=== PATIENT | female | born 1985 | race Native Hawaiian/Other Pacific Islander ===

== ENCOUNTER 2017-10-14 13:34 | Inpatient (IN) | payer BC, OTHER ==
--- NOTE | 2017-10-14 14:14 | ED PDOC ---
HPI: Psych/Substance Abuse Time Seen by Provider: 10/14/17 14:05 Chief Complaint (Nursing): Psychiatric Evaluation Chief Complaint (Provider): Suicidal Ideation History Per: Patient History/Exam Limitations: no limitations Onset/Duration Of Symptoms: Days Current Symptoms Are (Timing): Still Present Suicide/Self Injury Attempted (Context): None Modifying Factor(s): None Associated Symptoms: Depression, Suicidal Thoughts, Suicidal Plan Additional Complaint(s): 32 year old female with a history of asthma and depression presents to the emergency department for a psychiatric evaluation. Patient reports that she has had depression ongoing for a few months and her suicidal ideations have also increased. She states that this week she began formulating a plan and she became worried prompting her ED visit. Patient states that she has an appointment with her psychiatrist in 2 weeks. Patient has had no previous suicidal attempts and stats that she is unsure of what made everything worse. PMD: Past Medical History Reviewed: Historical Data, Nursing Documentation, Vital Signs Vital Signs: Last Vital Signs Temp 98.2 F 10/14/17 13:40 Pulse 78 10/14/17 13:40 Resp 18 10/14/17 13:40 BP 135/78 10/14/17 13:40 Pulse Ox 98 10/14/17 13:40 - Medical History PMH: No Chronic Diseases - Surgical History Surgical History: No Surg Hx - Family History Family History: States: Unknown Family Hx - Living Arrangements Living Arrangements: With Family - Social History Current smoker - smoking cessation education provided: No Alcohol: None Drugs: Other - Home Medications Home Medications: Ambulatory Orders Medication Instructions Recorded Loratadine/Pseudoephedrine 1 tab PO DAILY 10/14/17 [Claritin-D 24 Hour Tablet] Noreth-Ethinyl Estradiol/Iron 1 tab PO DAILY 10/14/17 [Generess Fe Chewable Tablet] - Allergies Allergies/Adverse Reactions: Allergies Allergy/AdvReac Type Severity Reaction Status Date / Time No Known Allergies Allergy Verified 10/14/17 13:40 Review of Systems Psych: Positive for: Depression, Suicidal ideation Physical Exam - Reviewed Nursing Documentation Reviewed: Yes Vital Signs Reviewed: Yes - Physical Exam Appears: Positive for: Non-toxic, No Acute Distress Head Exam: Positive for: ATRAUMATIC, NORMAL INSPECTION Skin: Positive for: Normal Color, Warm, Dry. Negative for: Rash Eye Exam: Positive for: Normal appearance, EOMI, PERRL ENT: Positive for: Normal ENT Inspection. Negative for: Nasal Congestion, Tonsillar Exudate, Tonsillar Swelling Neck: Positive for: Normal, Painless ROM, Supple Cardiovascular/Chest: Positive for: Regular Rate, Rhythm, Chest Non Tender. Negative for: Murmur, Tachycardia Respiratory: Positive for: Normal Breath Sounds. Negative for: Rales, Rhonchi, Wheezing, Respiratory Distress Gastrointestinal/Abdominal: Positive for: Normal Exam, Bowel Sounds, Soft. Negative for: Tenderness, Mass, Guarding, Rebound Back: Positive for: Normal Inspection. Negative for: L CVA Tenderness, R CVA Tenderness, Vertebral Tenderness Extremity: Positive for: Normal ROM. Negative for: Tenderness, Calf Tenderness , Deformity, Swelling Neurologic/Psych: Positive for: Alert, Oriented, Mood/Affect (tearful), Gait. Negative for: Motor/Sensory Deficits - Laboratory Results Result Diagrams: 10/14/17 15:58 10/14/17 15:58 - ECG O2 Sat by Pulse Oximetry: 98 (RA) Pulse Ox Interpretation: Normal - Progress ED Course And Treament: Patient is medically cleared for psychiatric admission. Medical Decision Making Medical Decision Makin Initial Impression 32 year old female presenting with suicidal ideation Initial plan: * Reevaluation 1452 Patient will be admitted to Dr. Schwartz. Diagnosis - Depression ------- Documented by Serene benton acting as a scribe for Bre Rocha PA-C. All medical record entries made by the Scribe were at my direction and personally dictated by me. I have reviewed the chart and agree that the record accurately reflects my personal performance of the history, physical exam, medical decision making, and the department course for this patient. I have also personally directed, reviewed, and agree with the discharge instructions and disposition. Disposition - Clinical Impression Clinical Impression: Depression - Patient ED Disposition Is Patient to be Admitted: Yes - Disposition Disposition Time: 14:46 Condition: FAIR - Pt Status Changed To: Hospital Disposition Of: Inpatient - Admit Certification Admit to Inpatient:: After my assessment, the patient will require hospitalization for at least two midnights. This is because of the severity of symptoms shown, intensity of services needed, and/or the medical risk in this patient being treated as an outpatient.
[2017-10-14 15:57] LABS: SQUAMOUS EPITHIAL 1 /hpf (0-5); URINE BACTERIA RARE (<OCC); URINE BILIRUBIN NEGATIVE (NEGATIVE); URINE BLOOD NEGATIVE (NEGATIVE); URINE CLARITY CLEAR (Clear); URINE COLOR YELLOW (YELLOW); URINE GLUCOSE (UA) NEG (Normal); URINE LEUKOCYTE ESTERASE NEG Leu/uL (Negative); URINE PROTEIN NEGATIVE (NEGATIVE); URINE UROBILINOGEN 0.2-1.0 mg/dL (0.2-1.0)
[2017-10-14 16:02] LABS: BASO # 0.1 K/uL (0.0-0.2); BASO % 0.8 % (0.0-2.0); EOS # 0.4 K/uL (0.0-0.7); EOS % 5.1 % (0.0-4.0); HEMOGLOBIN 14.3 g/dL (12.0-16.0); LYMPH # 3.1 K/uL (1.0-4.3); LYMPH % 43.9 % (20.0-40.0); MEAN CELL VOLUME 93.7 fl (81.0-99.0); MEAN CORPUSCULAR HEMOGLOBIN 31.8 pg (27.0-31.0); MEAN CORPUSCULAR HGB CONC 33.9 g/dL (33.0-37.0); MEAN PLATELET VOLUME 8.1 fl (7.2-11.7); MONO # 0.3 K/uL (0.0-0.8); NEUT # 3.3 K/uL (1.8-7.0); NEUT % 46.2 % (50.0-75.0); NRBC % 0.1 % (0.0-0.0); RBC 4.51 Mil/uL (3.80-5.20); RED CELL DISTRIBUTION WIDTH 12.4 % (11.5-14.5); WHITE BLOOD COUNT 7.1 K/uL (4.8-10.8)
[2017-10-14 16:07] LABS: BARBITURATES, UR NEGATIVE (NEGATIVE); BENZODIAZEPINES, UR NEGATIVE (NEGATIVE); OPIATES, UR NEGATIVE (NEGATIVE); PHENCYCLIDINE, UR NEGATIVE (NEGATIVE)
[2017-10-14 16:14] LABS: ALB/GLOB RATIO 1.1 (1.0-2.1); ALBUMIN 4.3 g/dL (3.5-5.0); ALT/SGPT 16 U/L (9-52); AST/SGOT 26 U/L (14-36); BLOOD UREA NITROGEN 11 mg/dl (7-17); CALCIUM 8.7 mg/dL (8.4-10.2); GFR AFRICAN-AMERICAN > 60; GFR NON-AFRICAN AMERICAN > 60
--- NOTE | 2017-10-15 00:01 | ED PDOC ---
- Laboratory Results Result Diagrams: 10/14/17 15:58 10/14/17 15:58 - ECG O2 Sat by Pulse Oximetry: 100 Medical Decision Making Medical Decision Makin Patient under the direct care of this provider from Bre Rocha PA-C pending morning evaluation by Dr. Hoang. [id number] Patient signed out to Dr. Sarmiento pending morning evaluation by Dr. Hoang. Scribe Attestation: Documented by Jacklyn Cooney, acting as a scribe for Adi Harper MD. Provider Scribe Attestation: All medical record entries made by the Scribe were at my direction and personally dictated by me. I have reviewed the chart and agree that the record accurately reflects my personal performance of the history, physical exam, medical decision making, and the department course for this patient. I have also personally directed, reviewed, and agree with the discharge instructions and disposition. Disposition - Clinical Impression Clinical Impression: Depression - POA Present On Arrival: None - Disposition Disposition: Transfer of Care Disposition Time: 07:00 Condition: FAIR Patient Signed Over To: Emerson Sarmiento III Handoff Comments: pending AM evaluation
--- NOTE | 2017-10-15 07:08 | ED PDOC ---
- Laboratory Results Result Diagrams: 10/14/17 15:58 10/14/17 15:58 - ECG O2 Sat by Pulse Oximetry: 98 Medical Decision Making Medical Decision Making: Patient signed out to me by Dr. Harper at 07:00, pending psych evaluation by Dr. Hoang. Scribe Attestation: Documented by Gabriele Kong, acting as a scribe for Emerson Sarmiento III, DO Provider Scribe Attestation: All medical record entries made by the Scribe were at my direction and personally dictated by me. I have reviewed the chart and agree that the record accurately reflects my personal performance of the history, physical exam, medical decision making, and the department course for this patient. I have also personally directed, reviewed, and agree with the discharge instructions and disposition. Disposition - Clinical Impression Clinical Impression: Depression - Disposition Condition: FAIR Forms: [employer] (Kyrgyz)
--- NOTE | 2017-10-15 07:08 | ED PDOC ---
- Laboratory Results Result Diagrams: 10/14/17 15:58 10/16/17 09:40 - ECG O2 Sat by Pulse Oximetry: 98 Medical Decision Making Medical Decision Makinam pending eval by psychiatrist this morning Recommend 3N admission Medically stable for psychiatric admission at time of evaluation Disposition - Clinical Impression Clinical Impression: Depression - POA Present On Arrival: None - Disposition Disposition: Admitted as In-Patient Disposition Time: 10:00 Condition: FAIR
--- NOTE | 2017-10-15 14:28 | CP.PCM.CON ---
History of Present Illness - History of Present Illness History of Present Illness: face to face evaluation pt is a 32ys old female with previous psychiatric diagnosis of depression not currently in treatment, pt has been feeling increasingly depressed for past month with increased anxiety poor sleep and poor appetite, pt started experiencing suicidal ideation , on day of evaluation , pt was asking her to leave the house as she had the intention to end her life by hanging herself using a belt on evaluation pt continues to present with depressed mood and anxious depressed mood and affect, pt continues to have suicidal thoughts, feeling hopeless and helpless stating she feels inner pain and unable to continue with life with this pain, poor sleep and poor appetite Past Patient History - Past Social History Alcohol: None Drugs: Other - CARDIAC Hx Cardiac Disorders: No Hx Hypertension: No - PULMONARY Hx Tuberculosis: No - NEUROLOGICAL HX Cerebrovascular Accident: No Hx Seizures: No - HEMATOLOGICAL/ONCOLOGICAL Hx Cancer: No Hx Human Immunodeficiency Virus (HIV): No - GENITOURINARY/GYNECOLOGICAL Hx Sexually Transmitted Disorders: No - PSYCHIATRIC Hx Substance Use: Yes - SURGICAL HISTORY Other/Comment: Laser - retinal tear. Meds Allergies/Adverse Reactions: Allergies Allergy/AdvReac Type Severity Reaction Status Date / Time No Known Allergies Allergy Verified 10/14/17 13:40 Physical Exam - Psychiatric Exam Additional comments: pt seen in bed, cooperative, speech soft . mood anxious, affect anxious depressed, thought form coherent , continues to verbalize feeling hopeless and helpless , with suicidal ideation, alert awake ox3 poor impulse control , partial insight into illness Results - Vital Signs Recent Vital Signs: Last Vital Signs Temp 98.1 F 10/15/17 11:35 Pulse 60 10/15/17 11:35 Resp 19 10/15/17 11:35 BP 107/75 10/15/17 11:35 Pulse Ox 98 10/15/17 11:35 - Labs Result Diagrams: 10/14/17 15:58 10/14/17 15:58 Labs: Laboratory Results - last 24 hr 10/14/17 10/14/17 10/14/17 15:24 15:24 15:58 WBC RBC Hgb Hct MCV MCH MCHC RDW Plt Count MPV Neut % (Auto) Lymph % (Auto) Bent % (Auto) Eos % (Auto) Baso % (Auto) Neut # (Auto) Lymph # (Auto) Bent # (Auto) Eos # (Auto) Baso # (Auto) Sodium 138 Potassium 4.4 Chloride 103 Carbon Dioxide 24 Anion Gap 15 BUN 11 Creatinine 0.5 L Est GFR ( Amer) > 60 Est GFR (Non-Af Amer) > 60 Random Glucose 94 Calcium 8.7 Total Bilirubin 0.9 AST 26 ALT 16 Alkaline Phosphatase 36 L Total Protein 8.1 Albumin 4.3 Globulin 3.8 Albumin/Globulin Ratio 1.1 TSH 3rd Generation 1.28 Urine Color Yellow Urine Clarity Clear Urine pH 6.0 Ur Specific C[place] 1.020 Urine Protein Negative Urine Glucose (UA) Neg Urine Ketones Negative Urine Blood Negative Urine Nitrate Negative Urine Bilirubin Negative Urine Urobilinogen 0.2-1.0 Ur Leukocyte Esterase Neg Urine RBC (Auto) 3 Urine Microscopic WBC 1 Ur Squamous Epith Cells 1 Urine Bacteria Rare Urine Opiates Screen Negative Urine Methadone Screen Negative Ur Barbiturates Screen Negative Ur Phencyclidine Scrn Negative Ur Amphetamines Screen Negative U Benzodiazepines Scrn Negative U Oth Cocaine Metabols Negative U Cannabinoids Screen Negative Alcohol, Quantitative < 10 10/14/17 15:58 WBC 7.1 RBC 4.51 Hgb 14.3 Hct 42.3 MCV 93.7 MCH 31.8 H MCHC 33.9 RDW 12.4 Plt Count 223 MPV 8.1 Neut % (Auto) 46.2 L Lymph % (Auto) 43.9 H Bent % (Auto) 4.0 Eos % (Auto) 5.1 H Baso % (Auto) 0.8 Neut # (Auto) 3.3 Lymph # (Auto) 3.1 Bent # (Auto) 0.3 Eos # (Auto) 0.4 Baso # (Auto) 0.1 Sodium Potassium Chloride Carbon Dioxide Anion Gap BUN Creatinine Est GFR ( Amer) Est GFR (Non-Af Amer) Random Glucose Calcium Total Bilirubin AST ALT Alkaline Phosphatase Total Protein Albumin Globulin Albumin/Globulin Ratio TSH 3rd Generation Urine Color Urine Clarity Urine pH Ur Specific Custar Urine Protein Urine Glucose (UA) Urine Ketones Urine Blood Urine Nitrate Urine Bilirubin Urine Urobilinogen Ur Leukocyte Esterase Urine RBC (Auto) Urine Microscopic WBC Ur Squamous Epith Cells Urine Bacteria Urine Opiates Screen Urine Methadone Screen Ur Barbiturates Screen Ur Phencyclidine Scrn Ur Amphetamines Screen U Benzodiazepines Scrn U Oth Cocaine Metabols U Cannabinoids Screen Alcohol, Quantitative Assessment & Plan - Assessment and Plan (Free Text) Assessment: Major depression recurrent severe without psychotic features Plan: pt at current mental status continues to verbalize suicidal ideation, continues to be danger to self pt agrees to sign for voluntary admission for stabilization awaiting to be transferred to hospital under insurance network
--- NOTE | 2017-10-15 15:24 | RAD ---
HISTORY: The the Medical clearance. COMPARISON: No prior. FINDINGS: LUNGS: No active pulmonary disease. PLEURA: No significant pleural effusion identified, no pneumothorax apparent. CARDIOVASCULAR: Normal. OSSEOUS STRUCTURES: No significant abnormalities. VISUALIZED UPPER ABDOMEN: Normal. OTHER FINDINGS: None. IMPRESSION: No active disease.
--- NOTE | 2017-10-15 19:10 | PCM.BM ---
<Diana Tao A - Last Filed: 10/15/17 19:07> Treatment Plan Problems - Problems identified on initial assessmt Hopelessness/Helplessness Date Initiated: 10/15/17 Time Initiated: 19:09 Assessment reference: NA Status: Active Treatment assets and liabiliti Patient Assests: cooperative, educated, insightful, motivated, resourceful, self -reliant, ADL independent, physically healthy, good support system, negotiates basic needs, financial stabiity, cognitively intact Patient Liabilities: relationship conflicts - Milieu Protocol Maintain good personal hygiene: daily Encourage regular showers, daily Remind patient to perform daily oral care Conduct patient checks and document Observation sheet: Q15 minutes Maintain personal safety: every shift Educate patient to report safety concerns to staff, every shift Monitor environment for contraband/sharps Medication safety: Monitor for expected outcome, potential side effects: every shift, Assess barriers to learning: every shift, Assess readiness for medication education: every shift <Adair Hoang A - Last Filed: 10/18/17 09:55> - Diagnosis (1) Depression Status: Acute Interventions: PSYCHOTHERAPY, PHARMACOTHERAPY 10/17/17 14:01
[2017-10-15 19:21] VITALS: RESP 18
[2017-10-15] MEDS ORDERED: DiphenhydrAMINE 50 mg/ml Inj IM PRN (20:20)
[2017-10-15] MEDS ORDERED: Magnesium Hydroxide Susp 30 ml UD PO PRN (20:26)
[2017-10-15] MEDS ORDERED: Alum-Mag Hydrox-Simethicone Susp (30 mL) PO PRN (20:27)
--- NOTE | 2017-10-16 08:48 | CARD ---
APPROVED REPORT EKG Measurement Heart [id number] <Conclusion> Sinus bradycardia Cannot rule out Anterior infarct, age undetermined (Check chest lead placement) Abnormal ECG
[2017-10-16 10:36] LABS: ALB/GLOB RATIO 1.2 (1.0-2.1); ALBUMIN 4.5 g/dL (3.5-5.0); ALT/SGPT 18 U/L (9-52); AST/SGOT 25 U/L (14-36); BLOOD UREA NITROGEN 12 mg/dl (7-17); GFR AFRICAN-AMERICAN > 60; GFR NON-AFRICAN AMERICAN > 60
[2017-10-16 10:50] LABS: T4 10.2 ug/dl (5.5-11.0)
[2017-10-16 11:03] LABS: T3 1.18 nmol/L (1.49-2.60)
--- NOTE | 2017-10-16 17:05 | PCM.PSYCH ---
Initial Psychiatric Evaluation - Initial Psychiatric Evaluation Type of Admission: Voluntary Legal Status: Capacity Chief Complaint (in patient's own words): I NEVER GAVE MYSELF OPPORTUNITY TO EXPRESS MY FEELINGS Patient's Reaction to Hospitalization: pt requested help History of Present Illness and Precipitating Events: pt is a 32ys old female with previous psychiatric diagnosis of depression not currently in treatment, pt has been feeling increasingly depressed for past month due to increased stress at work with increased anxiety poor sleep and poor appetite, pt started experiencing suicidal ideation , on day of evaluation , pt was asking her to leave the house as she had the intention to end her life by hanging herself using a belt on evaluation pt continues to present with depressed mood and anxious depressed mood and affect, pt continues to have suicidal thoughts without active plan on the unit , feeling hopeless and helpless stating she feels inner pain and unable to continue with life with this pain, denied psychotic symptoms, no reported substance use Current Medications: Active Medications Generic Name Dose Route Start Last Admin Trade Name Freq PRN Reason Stop Dose Admin Acetaminophen 650 mg 10/15/17 20:28 Tylenol 325mg Tab PO Q6 PRN pain 3 to 8 Al Hydrox/Mg Hydrox/Simethicone 30 ml 10/15/17 20:27 Maalox Plus 30 Ml PO Q4 PRN Indigestion / Heartburn Diphenhydramine HCl 50 mg 10/15/17 20:19 Benadryl PO Q6 PRN eps Diphenhydramine HCl 50 mg 10/15/17 20:20 Benadryl IM Q6 PRN eps if can not swallow Diphenhydramine HCl 50 mg 10/15/17 20:42 Benadryl PO HS PRN Sleep Escitalopram Oxalate 10 mg 10/17/17 09:00 Lexapro PO DAILY AVIS Haloperidol 5 mg 10/15/17 20:22 Haldol PO Q4 PRN Agitation Haloperidol Lactate 5 mg 10/15/17 20:24 Haldol IM Q4 PRN severe agitation Lorazepam 1 mg 10/15/17 21:25 Ativan PO BID PRN Anxiety Lorazepam 1 mg 10/15/17 20:17 Ativan IM Q8 PRN severe agitation Magnesium Hydroxide 30 ml 10/15/17 20:26 Milk Of Magnesia PO HS PRN Constipation Trazodone HCl 50 mg 10/16/17 22:00 Desyrel PO HS AVIS Past Psychiatric History - Past Psychiatric History Prior Professional Help: counselling Explanation of prior treatment: no hx of previous psychiatric hospitalizations History of Abuse: denied History of ETOH/Drug Use: denied History of Family Illness: grandmother and mother hx of depression Pertinent Medical Hx (Current Medical&Sleep Prob, Allergies): Allergies Allergy/AdvReac Type Severity Reaction Status Date / Time No Known Allergies Allergy Verified 10/14/17 13:40 Loratadine/Pseudoephedrine [Claritin-D 24 Hour Tablet] 1 tab PO DAILY 10/14/17 Noreth-Ethinyl Estradiol/Iron [Generess Fe Chewable Tablet] 1 tab PO DAILY 10/14 Mental Status Examination - Personal Presentation Personal Presentation: Looks stated age - Affect Affect: Constricted, Depressed - Motor Activity Motor Activity: Psychomotor Retardation - Reliability in Providing Information Reliability in Providing Information: Good - Speech Speech: Organized - Mood Mood: Depressed, Anxious - Formal Thought Process Formal Thought Process: No Impairment - Obsessions/Compulsions Obsessions: No Compulsions: No - Cognitive Functions Orientation: Person, Place, Situation Sensorium: Alert Attention/Concentration: Attentive Estimate of Intelligence: Above Average - Risk Risk: Suicidal, Diminished functioning - Strength & Assets Inventory Strength & Assets Inventory: Intelligence, Employment history - Limitations Additional comments: non compliance with treatment DSM 5 DX - DSM 5 DSM 5 Diagnosis: major depression recurrent severe without psychotic features - Recommended/Plan of Treatment Treatment Recommendations and Plan of Treatment: start lexapro 5mg daily and uptitrate gradualy trazodone 50mg qhs CBT group and supportive therapy
--- NOTE | 2017-10-16 19:23 | CP.PCM.CON ---
History of Present Illness - History of Present Illness History of Present Illness: 32 yo female with no significant PMH admitted to psyche unit because of depression and suicidal ideation. Review of Systems - Review of Systems All systems: reviewed and no additional remarkable complaints except (aside from those mentioned above, 12 point system review were negative by me) Past Patient History - Tetanus Immunizations Tetanus Immunization: Unknown - Past Medical History & Family History Past Medical History?: No - Past Social History Smoking Status: Never Smoked Chewing Tobacco Use: No Cigar Use: No Alcohol: None Drugs: Other - CARDIAC Hx Cardiac Disorders: No - PULMONARY Hx Asthma: Yes Hx Tuberculosis: No - NEUROLOGICAL Hx Neurological Disorder: No HX Cerebrovascular Accident: No Hx Seizures: No - HEENT Hx HEENT Problems: No - RENAL Hx Chronic Kidney Disease: No - ENDOCRINE/METABOLIC Hx Endocrine Disorders: No - HEMATOLOGICAL/ONCOLOGICAL Hx Blood Disorders: No Hx Cancer: No Hx Human Immunodeficiency Virus (HIV): No - INTEGUMENTARY Hx Dermatological Problems: No - MUSCULOSKELETAL/RHEUMATOLOGICAL Hx Musculoskeletal Disorders: No - GASTROINTESTINAL Hx Gastrointestinal Disorders: No - GENITOURINARY/GYNECOLOGICAL Hx Genitourinary Disorders: No Hx Sexually Transmitted Disorders: No - PSYCHIATRIC Hx Physical Abuse: No Hx Sexual Abuse: No Hx Substance Use: No - SURGICAL HISTORY Hx Surgeries: No Hx Eye Surgery: Yes (laser left eye 2010) Other/Comment: Laser - retinal tear. - ANESTHESIA Hx Anesthesia: No Meds Allergies/Adverse Reactions: Allergies Allergy/AdvReac Type Severity Reaction Status Date / Time No Known Allergies Allergy Verified 10/14/17 13:40 - Medications Medications: Current Medications Acetaminophen (Tylenol 325mg Tab) 650 mg PO Q6 PRN PRN Reason: pain 3 to 8 Al Hydrox/Mg Hydrox/Simethicone (Maalox Plus 30 Ml) 30 ml PO Q4 PRN PRN Reason: Indigestion / Heartburn Diphenhydramine HCl (Benadryl) 50 mg PO Q6 PRN PRN Reason: eps Diphenhydramine HCl (Benadryl) 50 mg IM Q6 PRN PRN Reason: eps if can not swallow Diphenhydramine HCl (Benadryl) 50 mg PO HS PRN PRN Reason: Sleep Escitalopram Oxalate (Lexapro) 10 mg PO DAILY AVIS Haloperidol (Haldol) 5 mg PO Q4 PRN PRN Reason: Agitation Haloperidol Lactate (Haldol) 5 mg IM Q4 PRN PRN Reason: severe agitation Lorazepam (Ativan) 1 mg PO BID PRN PRN Reason: Anxiety Lorazepam (Ativan) 1 mg IM Q8 PRN PRN Reason: severe agitation Magnesium Hydroxide (Milk Of Magnesia) 30 ml PO HS PRN PRN Reason: Constipation Trazodone HCl (Desyrel) 50 mg PO HS AVIS Physical Exam - Constitutional Appears: No Acute Distress - Head Exam Head Exam: ATRAUMATIC - Eye Exam Eye Exam: absent: Scleral icterus - ENT Exam ENT Exam: Mucous Membranes Moist - Neck Exam Neck exam: Negative for: Meningismus - Respiratory Exam Respiratory Exam: absent: Rales, Rhonchi, Wheezes, Respiratory Distress - Cardiovascular Exam Cardiovascular Exam: REGULAR RHYTHM, +S1, +S2 - GI/Abdominal Exam GI & Abdominal Exam: Soft. absent: Tenderness - Rectal Exam Rectal Exam: Deferred - Extremities Exam Extremities exam: Negative for: pedal edema - Neurological Exam Neurological exam: Alert, Oriented x3 - Psychiatric Exam Psychiatric exam: Normal Affect - Skin Skin Exam: Dry, Intact Results - Vital Signs Recent Vital Signs: Last Vital Signs Temp 97.5 F L 10/16/17 16:39 Pulse 48 L 10/16/17 16:39 Resp 18 10/16/17 16:39 BP 130/70 10/16/17 16:39 Pulse Ox 100 10/15/17 20:45 - Labs Result Diagrams: 10/14/17 15:58 10/16/17 09:40 Labs: Laboratory Results - last 24 hr 10/16/17 10/16/17 10/16/17 09:40 09:40 09:40 Sodium 140 Potassium 4.0 Chloride 101 Carbon Dioxide 27 Anion Gap 16 BUN 12 Creatinine 0.6 L Est GFR ( Amer) > 60 Est GFR (Non-Af Amer) > 60 Random Glucose 89 Hemoglobin A1c 5.2 Calcium 9.0 Total Bilirubin 0.9 AST 25 ALT 18 Alkaline Phosphatase 33 L Total Protein 8.3 H Albumin 4.5 Globulin 3.8 Albumin/Globulin Ratio 1.2 Thyroxine (T4) 10.2 Total T3 1.18 L TSH 3rd Generation 1.80 RPR Nonreactive Assessment & Plan (1) Depression Status: Acute Comment: psyche is managing (2) Asthma Status: Inactive Comment: asymptomatic
[2017-10-17] MEDS: IRON PO SCH (13:11)
[2017-10-17] MEDS: [UNRECOGNIZED DRUG - OTHER] PO SCH (13:11)
--- NOTE | 2017-10-17 14:19 | PCM.PYCHPN ---
Psychiatric Progress Note - Psychiatric Progress Note Patient seen today, length of contact: PT EVALUATED DISCUSSED WITH TEAM CHART REVIEWED Patient Chief Complaint: I had a good chance to reflect on my feelings Problems Identified/Issues Discussed: pt evaluated with treatment team, was able to verbalize the triggers for her suicidal thoughts, stated feeling calmer and able to reflect on the causes of her depression, reported improved sleep with trazodone, , no side effects with lexapro, CBT provided and discussed with pt the need to continue with therapy on discharge, pt compliant with treatment , attending groups, denied any current suicidal or homicidal ideation Medical Problems: no hx of previous psychiatric hospitalizations DSM 5 Symptoms Update: major depression recurrent severe without psychotic features Medication Change: No Medical Record Reviewed: Yes Mental Status Examination - Cognitive Function Orientation: Person, Place, Situation Memory: Intact Attention: WNL Concentration: WNL Association: WNL Fund of Knowledge: WN Decription of patient's judgement and insights: good insight and judgment - Mood Mood: Depressed, Anxious - Affect Affect: Constricted, Depressed - Speech Speech: Appropriate - Formal Thought Process Formal Thought Process: No Impairment Psychotic Thoughts and Behaviors: pt denied psychotic symptoms, non elicited - Suicidal Ideation Suicidal Ideation: No - Homicidal Ideation Homicidal Ideation: No Goal/Treatment Plan - Goal/Treatment Plan Need for Continued Stay: Severe depression anxiety, Discharge may exacerbated symptoms Progress Toward Problem(s) and Goals/Treatment Plan: lexapro 10mg daily trazodone 50mg qhs CBT group and supportive therapy Estimated Date of D/C: 10/18/17
[2017-10-18] MEDS: IRON PO SCH (08:23)
[2017-10-18] MEDS: [UNRECOGNIZED DRUG - OTHER] PO SCH (08:23)
[2017-10-18 08:27] VITALS: BP 117/67; PULSE 58; TEMP 97.7
--- NOTE | 2017-10-18 09:39 | PCM.PYCHDC ---
Mental Status Examination - Mental Status Examination Orientation: Person, Place, Situation Memory: Intact Mood: Neutral Affect: Broad Speech: Appropriate Attention: WNL Concentration: WNL Association: WNL Fund of Knowledge: WNL Formal Thought Process: No Impairment Description of patient's judgement and insight: good insight and judgment Psychotic Thoughts and Behaviors: pt denied psychotic symptoms, non elicited Suicidal Ideation: No Current Homicidal Ideation?: No Discharge Summary - Discharge Note Reason for Hospitalization: pt is a 32ys old female with previous psychiatric diagnosis of depression not currently in treatment, pt has been feeling increasingly depressed for past month due to increased stress at work with increased anxiety poor sleep and poor appetite, pt started experiencing suicidal ideation , on day of evaluation , pt was asking her to leave the house as she had the intention to end her life by hanging herself using a belt on evaluation pt continues to present with depressed mood and anxious depressed mood and affect, pt continues to have suicidal thoughts without active plan on the unit , feeling hopeless and helpless stating she feels inner pain and unable to continue with life with this pain, denied psychotic symptoms, no reported substance use Consultations:: List each consultation separately and include: 1. Reason for request. 2. Findings. 3. Follow-up Summary of Hospital Course include:: 1. Description of specific treatment plan utilized for patients during their course of treatmen. 2. Summarize the time- course for resolution of acute symptoms and/or regressed behaviors. 3. Describe issues identified and worked on during hospitalization. 4. Describe medication utilized. 5. Describe medical problems identified and treated. 6. Reassessment of suicide risk Summary of Hospital Course: pt on admission was presenting with depressed mood and affect, she was started on lexapro, increased to 10mg, trazodone 50mg qhs for insomnia CBT provided, pt was compliant with medications, no side effects reported, attended groups on discharge pt mental status was stable, denied any current suicidal or homicidal ideation denied perceptual disturbances follow up arranged by [employer] social [employer] teacher with outpatient therapist and psychiatrist - Diagnosis (1) Depression Current Visit: Yes Status: Acute - Final Diagnosis (DSM 5) Condition upon Discharge: FAIR DSM 5: major depression recurrent severe without psychotic features Disposition: HOME/ ROUTINE Follow-up Treatment Plan: lexapro 10mg daily trazodone 50mg qhs CBT group and supportive therapy Prescriptions/Medication Reconciliation: Escitalopram [Lexapro] 10 mg PO DAILY 30 Days #30 tab traZODone [Desyrel] 50 mg PO HS 30 Days #30 tab - Antipsychotic Medications Pt discharged on 2 or more routine antipsychotic medications: No
[2017-10-19 14:53] VITALS: O2SAT 98
== END 2017-10-18 10:54 | disposition home or self-care (01) | DRG 885 ==
LOC: H.ER 13:34 → H.ERHOLD 14:46 → UNDOADMIN 14:46 → H.ERHOLD 10-15 14:33 → H.PSYCH 10-15 17:00
PROVIDERS: ADMIT Psychiatry & Neurology Psychiatry; ATTEND Psychiatry & Neurology Psychiatry
PROC: GZHZZZZ Group Psychotherapy (ICD-10-PCS; principal; 2017-10-15)
PROC: GZ58ZZZ Individual Psychotherapy, Cognitive-Behavioral (ICD-10-PCS; 2017-10-15)
DX: F33.2 Major depressive disorder, recurrent severe without psychotic features (principal); R45.851 Suicidal ideations; J45.909 Unspecified asthma, uncomplicated; G47.00 Insomnia, unspecified; Z91.19 Patient's noncompliance with other medical treatment and regimen